=== PATIENT | male | born 1945 | race Caucasian/White ===

== ENCOUNTER 2021-06-07 18:19 | Emergency (ER) | payer MEDICARE ==
[2021-06-07] MEDS ORDERED: CILOXAN 0.3% O2.5 ML OU (22:40)
== END 2021-06-07 20:45 | disposition home or self-care (01) ==
LOC: ER1 18:19
DX: H10.021 Other mucopurulent conjunctivitis, right eye (principal); H11.32 Conjunctival hemorrhage, left eye; Z99.81 Dependence on supplemental oxygen; J06.9 Acute upper respiratory infection, unspecified; R05.9 Cough, unspecified; Z79.82 Long term (current) use of aspirin
CPT/HCPCS: 99283